=== PATIENT | female | born 1990 | race Caucasian/White ===

== ENCOUNTER 2019-03-21 09:45 | Emergency (ER) | payer OTHER, MEDICAID ==
[~2019-03-21] VITALS: Ht 160 cm; Wt 99.8 kg
[2019-03-21] MEDS ORDERED: IBUPROFEN 800800 M1 PO (10:10)
[2019-03-21] MEDS ORDERED: AUGMENTIN 500-1 EACH PO (10:10)
[2019-03-21 10:12] VITALS: BP 158/103
== END 2019-03-21 10:12 | disposition home or self-care (01) ==
LOC: M.ERS 09:45
DX: S61.230A Puncture wound without foreign body of right index finger without damage to nail, initial encounter (principal); F17.210 Nicotine dependence, cigarettes, uncomplicated; Z88.5 Allergy status to narcotic agent; W54.0XXA Bitten by dog, initial encounter; Y93.89 Activity, other specified; Y92.89 Other specified places as the place of occurrence of the external cause; Y99.8 Other external cause status

== ENCOUNTER 2019-10-06 21:42 | Emergency (ER) | payer OTHER, MEDICAID ==
[~2019-10-06] VITALS: Ht 157.5 cm; Wt 99.3 kg
[~2019-10-06 21:42] MED LIST: AUGMENTIN 500-1 EACH PO; IBUPROFEN 800800 M1 PO
[2019-10-06] MEDS ORDERED: NORCO 5-325 TA1 EAC1 PO (22:17)
[2019-10-06 22:39] VITALS: BP 133/74
== END 2019-10-06 22:39 | disposition home or self-care (01) ==
LOC: M.ERS 21:42
DX: S86.812A Strain of other muscle(s) and tendon(s) at lower leg level, left leg, initial encounter (principal); F17.210 Nicotine dependence, cigarettes, uncomplicated; Z88.5 Allergy status to narcotic agent; X58.XXXA Exposure to other specified factors, initial encounter; Y92.89 Other specified places as the place of occurrence of the external cause; Y93.89 Activity, other specified; Y99.8 Other external cause status